=== PATIENT | female | born 1945 | race African-American/Black ===

== ENCOUNTER 2019-02-14 18:00 | Emergency (ER) | payer BC, OTHER ==
[2019-02-14 18:15] VITALS: BMI 21.6
--- NOTE | 2019-02-14 18:16 | PDOC ---
Rapid Medical Evaluation Chief Complaint: Blood Pressure Problem Time Seen by Provider: 02/14/19 18:11 Medical Evaluation: Allergies Allergy/AdvReac Type Severity Reaction Status Date / Time Penicillins Allergy Verified 02/14/19 18:11 02/14/19 18:12 Pt c/o: had mild headache this afternoon so took BP and it was 180/99, took her lisinopril and states pain went away but came to the ED for BP check, currently asymptomatic Pt on brief exam: 166/78, no JVD, no SOB Pt ordered for: none Pt to proceed to the ED Discharge Disposition - Diagnosis High blood pressure - Referrals - Patient Instructions - Post Discharge Activity
[2019-02-14 18:56] VITALS: BP 142/82; PULSE 81; TEMP 98.5
--- NOTE | 2019-02-14 19:04 | PDOC ---
History of Present Illness - General Chief Complaint: Blood Pressure Problem Stated Complaint: HIGH BLOOD PRESSURE Time Seen by Provider: 02/14/19 18:11 History Source: Patient Exam Limitations: No Limitations Past History - Travel Traveled outside of the country in the last 30 days: No Close contact w/someone who was outside of country & ill: No - Past Medical History Allergies/Adverse Reactions: Allergies Allergy/AdvReac Type Severity Reaction Status Date / Time Penicillins Allergy Verified 02/14/19 18:11 Home Medications: Ambulatory Orders Lisinopril/Hydrochlorothiazide [Lisinopril-Hctz 20-25 mg Tab] 1 each PO DAILY Pravastatin Sodium [Pravachol (Nf)] 40 mg PO HS 07/14/15 CVA: No COPD: No CHF: No GI Disorders: Yes (GERD) HTN: Yes Hypercholesterolemia: Yes - Surgical History Abdominal Surgery: (ectopic preg 77) - Immunization History Immunization Up to Date: Yes - Psycho Social/Smoking Cessation Hx Smoking History: Never smoked Have you smoked in the past 12 months: No Number of Cigarettes Smoked Daily: 0 Hx Alcohol Use: No Drug/Substance Use Hx: No Substance Use Type: None Review of Systems - Review of Systems Able to Perform ROS?: Yes Comments:: 02/14/19 18:58 CONSTITUTIONAL: Present: "elevated blood pressure" Absent: fever, chills, diaphoresis, generalized weakness, malaise, loss of appetite HEENT: Absent: rhinorrhea, nasal congestion, throat pain, throat swelling, difficulty swallowing, mouth swelling, ear pain, eye pain, visual Changes CARDIOVASCULAR: Absent: chest pain, loss of consciousness, palpitations, irregular heart rate, peripheral edema RESPIRATORY: Absent: cough, shortness of breath, dyspnea with exertion, orthopnea, wheezing, stridor, hemoptysis GASTROINTESTINAL: Absent: abdominal pain, abdominal distension, nausea, vomiting, diarrhea, constipation, melena, hematochezia GENITOURINARY: Absent: dysuria, frequency, urgency, hesitancy, hematuria, flank pain, genital pain MUSCULOSKELETAL: Absent: myalgia, arthralgia, joint swelling SKIN: Absent: rash, itching, pallor HEMATOLOGIC/IMMUNOLOGIC: Absent: easy bleeding, easy bruising, lymphadenopathy, frequent infections ENDOCRINE: Absent: unexplained weight gain, unexplained weight loss, heat intolerance, cold intolerance NEUROLOGIC: Absent: headache, focal weakness or paresthesias, dizziness, unsteady gait, seizure, mental status changes, bladder or bowel incontinence PSYCHIATRIC: Absent: anxiety, depression, suicidal or homicidal ideation, hallucinations. Is the patient limited Polish proficient: No *Physical Exam - Vital Signs Last Vital Signs Temp Pulse Resp BP Pulse Ox 98.5 F 81 19 142/82 100 02/14/19 18:54 02/14/19 18:54 02/14/19 18:54 02/14/19 18:54 02/14/19 18:54 - Physical Exam Comments: 02/14/19 18:59 GENERAL: Well developed, well nourished. Awake and alert. No acute distress. HEENT: Normocephalic, atraumatic. PERRLA, EOMI. No conjunctival pallor. Sclera are non- icteric. L injected conjunctiva medially. Moist mucous membranes. Oropharynx is clear. NECK: Supple. Full ROM. No JVD. Carotid pulses 2+ and symmetric, without bruits. No thyromegaly. No lymphadenopathy. CARDIOVASCULAR: Regular rate and rhythm. No murmurs, rubs, or gallops. Distal pulses are 2+ and symmetric. PULMONARY: No evidence of respiratory distress. Lungs clear to auscultation bilaterally. No wheezing, rales or rhonchi. ABDOMINAL: Soft. Non-tender. Non-distended. No rebound or guarding. No organomegaly. Normoactive bowel sounds. MUSCULOSKELETAL Normal range of motion at all joints. No bony deformities or tenderness. No CVA tenderness. EXTREMITIES: No cyanosis. No clubbing. No edema. No calf tenderness. SKIN: Warm and dry. Normal capillary refill. No rashes. No jaundice. NEUROLOGICAL: Alert, awake, appropriate. Cranial nerves 2-12 intact. No deficits to light touch and temperature in face, upper extremities and lower extremities. No motor deficits in the in face, upper extremities and lower extremities. Normoreflexic in the upper and lower extremities. Normal speech. Toes are down- going bilaterally. Gait is normal without ataxia. PSYCHIATRIC: Cooperative. Good eye contact. Appropriate mood and affect. Medical Decision Making - Medical Decision Making 02/14/19 19:01 Patient is a 73-year-old female with past medical history of hypertension, hyperlipidemia, glaucoma, status post stent placement to relieve pressure, presents to the ER today for elevated blood pressure. She states that she has been taking prednisolone post surgery. She states that this afternoon she had a slight headache so she took her blood pressure and it was 180/90. She also notes that she took her blood pressure medication late today as she was busy this morning. She states that after she took her blood pressure medication the headache went away. Triage blood pressure is 166/88. She has no complaints at this time. A/P: Evaluation for blood pressure On exam lungs are clear to auscultation bilaterally, heart with regular rate and rhythm, S1-S2 present no murmurs rubs or gallops. Patient is neurologically intact with no focal findings. The left medial conjunctiva is injected status post stent placement for glaucoma. Repeat blood pressure in [facility] is 142/82. Patient is stable for discharge at this time. Patient has follow-up with her embroiderer hand tomorrow regarding her recent surgery. Also recommended the patient follow-up with her primary care doctor on Monday regarding her blood pressure readings. I discussed the physical exam findings, ancillary test results and final diagnoses with the patient. I answered all of the patient's questions. The patient was satisfied with the care received and felt comfortable with the discharge plan and treatment plan. The Patient agrees to follow up with the primary care physician/specialist within 24-72 hours. Return precautions were given. Discharge - Discharge Information Problems reviewed: Yes Clinical Impression/Diagnosis: High blood pressure Qualifiers: Hypertension type: essential hypertension Qualified Code(s): I10 - Essential ( primary) hypertension Condition: Stable Disposition: HOME - Admission No - Follow up/Referral Referrals: ON STAFF,NOT [Primary Care Provider] - - Patient Discharge Instructions Patient Printed Discharge Instructions: DI for High Blood Pressure Additional Instructions: You were evaluated for your blood pressure today. Your repeat blood pressure in the ER was 142/82 Please take your blood pressure twice a day and write down the numbers so you can consult with your primary care doctor regarding her blood pressure medication. Keep your follow-up with your eye doctor tomorrow. Return to ER should you have high blood pressure with headache, lightheadedness , dizziness, vomiting, increased eye pain, or if you have any changes in your symptoms. - Post Discharge Activity
== END 2019-02-14 19:46 | disposition home or self-care (01) ==
LOC: JER 18:00
DX: I10 Essential (primary) hypertension (principal); E78.00 Pure hypercholesterolemia, unspecified; K21.9 Gastro-esophageal reflux disease without esophagitis; Z88.0 Allergy status to penicillin; H40.9 Unspecified glaucoma; Z96.89 Presence of other specified functional implants
CPT/HCPCS: 99281-25

== ENCOUNTER 2019-03-21 21:14 | Emergency (ER) | payer BC ==
[2019-03-21 21:26] VITALS: PULSE 80; TEMP 98.2; BMI 27.3
[2019-03-21 21:47] VITALS: BP 153/70
--- NOTE | 2019-03-21 21:59 | PDOC ---
Documentation entered by Jodi Vasquez SCRIBE, acting as scribe for Carolynn Booth MD. Carolynn Booth MD: This documentation has been prepared by the Pedro miles Brenda, SCRIBE, under my direction and personally reviewed by me in its entirety. I confirm that the documentation accurately reflects all work, treatment, procedures, and medical decision making performed by me. Attending Attestation - Resident Resident Name: Dewayne Miller - ED Attending Attestation I have performed the following: I have examined & evaluated the patient, The case was reviewed & discussed with the resident, I agree w/resident's findings & plan, Exceptions are as noted - HPI HPI: 03/21/19 21:52 Ms. Smart is a 73-year-old female who presents to the emergency department with a complaint of elevated blood pressure Patient was seen immediately by Dr. Miller I attempted to see this patient however she was not in her room Per Dr. Miller, the patient measured her blood pressure at home. When she found it elevated she came into the ER Here in the ER blood pressure 153/[address] Miller, patient had no complaints of headache, chest pain, shortness of breath - Physicial Exam PE: 03/21/19 21:[address] Miller - Medical Decision Making 03/21/19 21:53 Ms. Smart has eloped from the emergency department Suspect she thought her visit was complete Patient has an appointment with her primary care physician tomorrow Clinical impression: Essential hypertension, initial presentation
--- NOTE | 2019-03-21 22:15 | PDOC ---
History of Present Illness - General Chief Complaint: Blood Pressure Problem Stated Complaint: HYPERTENSION Time Seen by Provider: 03/21/19 21:31 - History of Present Illness Initial Comments: 03/21/19 21:49 73F with pmh HTN on Lisinopril here because she was worried that her BP was high when she checked it on her home BP machine, said it was 180/110. She tested it while she was having a migraine around 2pm today. She doesn't however have any complains presently. Has an appointment with her PCP tomorrow. Has been using prednisolone drops for her eyes since November but stopped today. 03/21/19 22:15 Denies headache, change in vision, fever, chills, chest pain, sob, abdominal pain, n,v,d. Past History - Past Medical History Allergies/Adverse Reactions: Allergies Allergy/AdvReac Type Severity Reaction Status Date / Time Penicillins Allergy Verified 02/14/19 18:11 Home Medications: Ambulatory Orders Lisinopril/Hydrochlorothiazide [Lisinopril-Hctz 20-25 mg Tab] 1 each PO DAILY Pravastatin Sodium [Pravachol (Nf)] 40 mg PO HS 07/14/15 CVA: No COPD: No CHF: No GI Disorders: Yes (GERD) HTN: Yes Hypercholesterolemia: Yes - Surgical History Abdominal Surgery: (ectopic preg 77) - Immunization History Immunization Up to Date: Yes - Psycho Social/Smoking Cessation Hx Smoking History: Never smoked Have you smoked in the past 12 months: No Number of Cigarettes Smoked Daily: 0 Hx Alcohol Use: No Drug/Substance Use Hx: No Substance Use Type: None Review of Systems - Review of Systems Able to Perform ROS?: Yes Is the patient limited Spanish proficient: No Constitutional: No: Symptoms Reported HEENTM: No: Symptoms Reported Respiratory: No: Symptoms reported Cardiac (ROS): No: Symptoms Reported ABD/GI: No: Symptoms Reported : No: Symptoms Reported Musculoskeletal: No: Symptoms Reported Integumentary: No: Symptoms Reported Neurological: No: Symptoms reported All Other Systems: Reviewed and Negative *Physical Exam - Vital Signs Last Vital Signs Temp Pulse Resp BP Pulse Ox 98.2 F 80 19 153/70 98 03/21/19 21:22 03/21/19 21:22 03/21/19 21:22 03/21/19 21:47 03/21/19 21:22 - Physical Exam General Appearance: Yes: Nourished, Appropriately Dressed. No: Apparent Distress HEENT: positive: EOMI, AC, Normal ENT Inspection Respiratory/Chest: positive: Lungs Clear, Normal Breath Sounds. negative: Chest Tender Cardiovascular: positive: Regular Rhythm, Regular Rate, S1, S2 Gastrointestinal/Abdominal: positive: Normal Bowel Sounds, Flat, Soft. negative : Tender Integumentary: positive: Normal Color, Dry, Warm Neurologic: positive: Fully Oriented, Alert, Normal Mood/Affect, Normal Response , Motor Strength 5/5 Medical Decision Making - Medical Decision Making 03/21/19 22:16 Patient asymptomatic. BP here is 153/70. No cplaints. Will see her PCP tomorrow. Patient elopped before being seen by attending. Seems like she thought her visit was complete. Discharge - Discharge Information Problems reviewed: Yes Clinical Impression/Diagnosis: Blood pressure check Condition: Good Disposition: ELOPED - Follow up/Referral - Patient Discharge Instructions - Post Discharge Activity
== END 2019-03-21 22:06 | disposition left against medical advice (07) ==
LOC: JER 21:14
DX: I10 Essential (primary) hypertension (principal); E78.00 Pure hypercholesterolemia, unspecified; K21.9 Gastro-esophageal reflux disease without esophagitis; Z88.0 Allergy status to penicillin
CPT/HCPCS: 99281-25

== ENCOUNTER 2020-10-06 15:06 | Emergency (ER) | payer BC ==
[2020-10-06 15:21] VITALS: BP 140/78; PULSE 67; TEMP 99.3; BMI 18.8
== END 2020-10-06 15:39 | disposition home or self-care (01) ==
LOC: FER 15:06
DX: S00.451A Superficial foreign body of right ear, initial encounter (principal); S00.452A Superficial foreign body of left ear, initial encounter
CPT/HCPCS: 99281-25

== ENCOUNTER 2022-02-11 13:47 | Emergency (ER) | payer BC ==
[2022-02-11 13:54] VITALS: BP 206/95; PULSE 62; RESP 19; TEMP 98.1; BMI 20.5
[2022-02-11] MEDS ORDERED: SODIUM CHLORIDE 1,000 ML IV STA (15:00)
[2022-02-11 15:11] LABS: BASO % 0.5 % (0-2.0); EOS % 1.7 % (0-4.5); HEMATOCRIT 34.1 % (32.4-45.2); HEMOGLOBIN 11.1 GM/dL (10.7-15.3); LYMPH % 27.9 % (8-40); MCH 30.3 pg (25.7-33.7); MCHC 32.6 g/dl (32.0-36.0); MEAN PLT VOLUME 7.7 fl (7.5-11.1); MONO % 7.8 % (3.8-10.2); NEUT % 62.1 % (42.8-82.8); PLATELET COUNT 288 10^3/uL (134-434); RBC 3.67 M/mm3 (3.60-5.2); WHITE BLOOD COUNT 7.8 K/mm3 (4.0-10.0)
[2022-02-11 15:18] LABS: INR 1.06 (0.83-1.09); PROTHROMBIN TIME (PATIENT) 12.2 SEC (9.7-13.0)
[2022-02-11 15:20] LABS: ACTIVATED PTT 27.3 SECONDS (25.2-36.5)
[2022-02-11 15:35] LABS: CALCIUM 10.3 mg/dL (8.5-10.1)
[2022-02-11 15:36] LABS: BLOOD UREA NITROGEN 19.6 mg/dL (7-18); MAGNESIUM 2.1 mg/dL (1.8-2.4)
[2022-02-11 15:39] LABS: CREATININE 0.9 mg/dL (0.55-1.3)
[2022-02-11 15:41] LABS: BILIRUBIN,TOTAL 1.1 mg/dL (0.2-1); TOT PROT 7.6 g/dl (6.4-8.2)
== END 2022-02-11 17:45 | disposition home or self-care (01) ==
LOC: JER 13:47
DX: R03.0 Elevated blood-pressure reading, without diagnosis of hypertension (principal)
CPT/HCPCS: 36415; 80053; 83735; 84443; 84484; 85025; 85610; 85730; 93005; 93010; 99284-25